=== PATIENT | male | born 2000 | race Caucasian/White ===

== ENCOUNTER 2020-07-18 10:33 | Emergency (ER) | payer OTHER ==
[~2020-07-18] VITALS: Ht 172.7 cm; Wt 81.7 kg
[2020-07-18 11:36] LABS: ABSOLUTE NEUTROPHILS 8.7 thou/uL (1.4-8.2); BASOPHILS 0.4 % (0.0-2.0); EOSINOPHILS 1.3 % (0.0-3.0); HEMATOCRIT 50.2 % (42.0-52.0); LYMPHOCYTES 18.3 % (24.0-44.0); MCH 29.1 pg (26.0-34.0); MCHC 33.8 g/dL (28.0-37.0); MCV 86.2 fL (80.0-100.0); PLATELET COUNT 223 thou/uL (150-400); RBC 5.82 mil/uL (4.50-6.00); RDW 13.4 % (10.5-14.5); WBC 11.8 thou/uL (4.0-11.0)
[2020-07-18 11:50] LABS: CALCIUM 9.6 mg/dL (8.5-10.1)
[2020-07-18] MEDS ORDERED: AZITHROMYCIN500 MG PO (12:32)
[2020-07-18 12:50] VITALS: BP 108/81
--- NOTE | 2020-07-18 15:13 | EKG ---
[place] [address] [facility] [place] [address] ELECTROCARDIOGRAM REPORT Name: CHRISTY TAYLOR Room #: [facility]#: [id number] Admission: 07/18/20 Attend Phys: Discharge: Date of : [birth year] Report #: [id number] [facility] ED Test Date: 2020-07-18 Test Time: 10:46:57 Pat Name: CHRISTY TAYLOR Department: Room: Gender: Manager Risk Management: GAMAL : 2000 Requested By: Duane Guzman Order Number: [id number] MD: Afshin Daniel Measurements Intervals [place] Rate: 73 P: 8 OK: 126 QRS: 36 QRSD: 92 T: 42 QT: 378 QTc: 417 Interpretive Statements Sinus rhythm ST elev, probable normal early repol pattern No previous ECG available for comparison Electronically Signed On 07-18-2020 15:13:37 CDT by Afshin Daniel [email or web address] <ELECTRONICALLY SIGNED> By: Afhsin Daniel MD, [facility] 07/18/20 1513 1046 [id number] Afshin Daniel MD, FACC /EPI
== END 2020-07-18 12:57 | disposition home or self-care (01) ==
LOC: ER 10:33
PROVIDERS: Nurse Practitioner
DX: R05 Cough (principal); J02.9 Acute pharyngitis, unspecified; M79.10 Myalgia, unspecified site; Z88.8 Allergy status to other drugs, medicaments and biological substances; Z20.828 Contact with and (suspected) exposure to other viral communicable diseases